=== PATIENT | male | born 1985 | race Caucasian/White ===

== ENCOUNTER 2018-04-02 13:09 | Inpatient (IN) | payer OTHER, SELFPAY ==
[2018-04-02] VITALS (16 sets, daily range): BP systolic 101–145; BP diastolic 67–92; PULSE 54–175; RESP 15–22; TEMP 36.6–36.8; O2SAT 98–100; BMI 32.3; BMI 32.8
--- NOTE | 2018-04-02 13:31 | NURSING ---
NO OLD EKGS
--- NOTE | 2018-04-02 14:23 | ED.VISSUMM ---
- ER Visit Summary Date of Service: 04/02/18 Chief Complaint: Fast heart rate History of Present Illness: The patient is a 32 M history of A. fib at 24 years old. Currently on no medications. States that for the last 2-3 days and accelerated heart rate. Denies any syncope. Denies any chest pain. No prior history of DVT or PE. No travel or surgery. No mobilization. No leg pain or swelling. No hemoptysis. Physical Examination: Well-appearing male vital signs stable except his heart rate goes between 08/26/1960. He is in active A. fib while in the room. His initial blood pressure is . Pulse ox 98% on room air no hypoxia. H EENT exam unremarkable. Neck nontender. No thyromegaly. Lungs clear to auscultation bilaterally. Heart irregularly irregular rate about 146. No murmur. Abdomen soft nontender. No peritoneal signs. Moving all 4 extremities. Neurovascularly intact. Calves nontender, no edema nor cords. Neurologically is awake alert with no focal motor deficits. Test Results: Acute A. fib RVR rate of 169 on his initial EKGs. No signs of ischemia. BC normal. BMP normal. Troponin normal. TSH normal. Chest x-ray no acute abnormality. Normal cardiac silhouette and mediastinum. Read both by myself and the radiologist. Emergency Department Course and Treatment: Will undergo a cardiac workup. Receive IV Cardizem. Patient is doing very well on repeat exam at 1555. Currently his heart rates in the 80s. He remains in A. fib. His pressures are currently 90/50. I discussed with both he and his fidona?e about being admitted they are comfortable with the plan. Treatment Plan: Speak to the hospitalist about admission Disposition: Admission Impression: Recurrent A. fib RVR This note was generated with [employer] software. It may contain incorrect words, spelling, and punctuation that were not noted in review of the chart prior to signing ED Disposition - Plan for ED Patient: Chief Complaint: Palpitations
[2018-04-02] MEDS: dilTIAZem 25 MG/5 ML Vial IV BOLUS (14:29)
[2018-04-02 14:31] LABS: Absolute Lymphocyte Count 3.25 X10^3/ul (0.83-4.51); Absolute Neutrophil Count 5.7 X10^3/uL (2.0-7.7); Basophil# 0.05 X10^3/uL; Basophil% 0.5 % (0-1); Eosinophil# 0.36 X10^3/uL; Eosinophils% 3.5 % (0-5); Hematocrit 49.9 % (40-54); Hemoglobin 16.9 g/dl (13.0-16.5); Lymphocyte # 3.25 X10^3/ul (4.0); Lymphocyte % 31.4 % (19-41); Mean Corp Hgb Conc 33.9 g/gl (32-36); Mean Corpuscular Hgb 29.6 pg (27.0-32.0); Mean Corpuscular Volume 87.5 fL (80-94); Monocyte# 1.01 X10^3/uL; Monocyte% 9.8 % (0-10); Neutrophil # 5.67 X10^3/uL (2.7-7.7); Neutrophil % 54.7 % (47-70); Platelet Count 236 K/mm3 (150-450); RBC Distribution Width CV 13.3 % (11.6-14.6); RBC Distribution Width SD 41.7 fl (35.1-43.9); White Blood Count 10.4 K/mm3 (4.4-11.0)
[2018-04-02 14:33] LABS: POSITIVE COUNT NO; POSITIVE DIFFERENTIAL NO; POSITIVE MORPHOLOGY NO
[2018-04-02 14:56] LABS: Anion Gap 8 (5-15); BUN 14 mg/dL (7-18); BUN/Creat Ratio 12.1 RATIO (10-20); Calcium,Total 9.4 mg/dL (8.5-10.1); Chloride 107 mmol/L (98-107); Creatinine, Serum 1.16 mg/dL (0.70-1.30); EST Glomerular Filtration Rate 77 mL/min (>60); Est Glom Filt Rate - Afr Amer 93 mL/min (>60); Estimated Creatinine Clearance 102.36 ml/min; Glucose 90 mg/dL (74-106); Potassium 3.9 mmol/L (3.5-5.1); Sodium Level 142 mmol/L (136-145); Thyroid Stim Hormone (TSH) 2.45 uIU/mL (0.358-3.74)
--- NOTE | 2018-04-02 16:01 | PCM.HP.STD ---
Problem List (1) Paroxysmal atrial fibrillation with RVR Status: Acute (2) Paroxysmal A-fib Status: Chronic History of Present Illness Date of Admission: 04/02/18 Chief Complaint: Palpitations The patient is a 32 year old M with past medical history significant for anxiety disorder, history of previous transient atrial fibrillation who presents with palpitations. Patient symptoms started 2 days prior to his admission. In addition to his palpitations patient felt lightheaded. Patient denied any chest pain no shortness of breath. He had a similar episode when he was 25 years of age and this was apparently attributed to heavy use of caffeine. Patient on further questioning admitted to drinking 3 cups of coffee. He denies any alcohol use. Patient was first seen at [facility] where EKG demonstrated A. fib with RVR he was subsequently sent to the emergency department where he was still found to be in A. fib with RVR started on Cardizem drip and admitted to a monitored bed for further management Past Medical History Past Medical History (Chronic Problems): Chronic Problems Paroxysmal A-fib (Chronic) Allergies sulfamethoxazole [From Septra] Allergy (Verified 04/02/18 14:12) Rash trimethoprim [From Septra] Allergy (Verified 04/02/18 14:12) Rash Home Medications: Ambulatory Orders Medication Instructions Recorded Fluticasone 0.05% [Flonase Nasal 1 spray NASAL DAILY 04/02/18 [place]] Propranolol HCl 20 mg PO PRN PRN 04/02/18 Psychiatric History: Anxiety Smoking Status: Former smoker Tobacco Use: Vapor Review of Systems Constitutional: Denies: Anorexia, Chills, Fever, Night Sweats, Weight Change HEENT: Denies: Head Aches, Sinus Congestion, Sinus Drainage Cardiovascular: Reports: Light Headedness, Palpitations. Denies: Chest Pain, Orthopnea, Paroxysmal Noc. Dyspnea Respiratory: Denies: Cough, Shortness of breath at rest, Shortness of breath upon exertion, Sputum production Gastrointestinal: Denies: Abdominal Pain, Hematemesis, Hematochezia, Nausea, Melena, Vomiting Genitourinary: Denies: Dysuria, Frequency, Hematuria, Urgency Musculoskeletal: Denies: Joint Pain, Joint Tenderness Skin: Denies: Rash Neurological: Denies: Focal weakness, Numbness, Tingling Psychiatric: Denies: Homicidal Ideations, Suicidal Ideations Hematologic/ Lymphatic: Denies: Easy Bruising, Easy Bleeding VTE Information - Inpt Only VTE Present on Admission: No VTE Mechan Device Prophylaxis: Knee High CELIA Hose VTE Pharm Prophylaxis ordered?: No Reason prophylaxis not ordered:: Treatment Not Indicated Patient Problems: Active and Suspected Problems Paroxysmal atrial fibrillation with RVR (Acute) - Physical Exam General: Alert, Oriented x3, Cooperative, No apparent distress HEENT: PERRLA Neck: Supple, No JVD Lungs: Clear to auscultation, No wheeze Cardiovascular: Normal S1, Normal S2, No murmurs, Irregular Rate, Tachycardic Abdomen: Bowel Sounds Present, Soft, Non Tender Extremities: No clubbing, No cyanosis, No edema Skin: No rashes Musculoskeletal: - - Full range of motion in all major muscle groups. Neurological: Neuro grossly intact Psych/Mental Status: Normal Affect Vital Signs Temp Pulse Resp BP Pulse Ox 98.1 F 85 19 H 101/67 99 04/02/18 13:11 04/02/18 15:10 04/02/18 15:10 04/02/18 15:10 04/02/18 15:10 Oxygen Delivery Method Room Air Weight: 111.13 kg Body Mass Index (BMI) 32.3 Laboratory Tests Past 24 Hrs 04/02/18 04/02/18 14:26 14:26 WBC 10.4 RBC 5.70 Hgb 16.9 H Hct 49.9 MCV 87.5 MCH 29.6 MCHC 33.9 RDW 13.3 RDW Differential 41.7 Plt Count 236 MPV 10.0 Immature Gran % (Auto) 0.100 Neut % (Auto) 54.7 Lymph % (Auto) 31.4 [place] % (Auto) 9.8 Eos % (Auto) 3.5 Baso % (Auto) 0.5 Absolute Neuts (auto) 5.7 Absolute Lymphs (auto) 3.25 Total Counted Not Reportable Sodium 142 Potassium 3.9 Chloride 107 Carbon Dioxide 27.0 Anion Gap 8 BUN 14 Creatinine 1.16 Estim Creat Clear Calc 102.36 Est GFR (MDRD) Af Amer 93 Est GFR (MDRD) Non-Af 77 BUN/Creatinine Ratio 12.1 Glucose 90 Calcium 9.4 Troponin I < 0.015 TSH 2.45 Assessment/Plan All Active Problems Paroxysmal atrial fibrillation with RVR (Acute) Patient is a 32-year-old gentleman presenting with palpitations found to be in A. fib with RVR 1. Atrial fibrillation with RVR: Patient has been admitted to monitored bed started on Cardizem drip titrated to keep rate less than 100. As part of patient management ordered serial cardiac enzymes 2D echo. Initial diagnostic workup in the ER came back unremarkable. Patient was also started on systemic anticoagulation. He was informed if he does not convert spontaneously he may need to be brought back after 3 weeks of systemic anticoagulation for possible cardioversion. Onset of his symptoms more than 48 hours prior to his presentation. Consultation was as also placed cardiology 2. Anxiety disorder patient is on propranolol as needed 3. Tobacco dependence: (Patient apparently vapes) counseled on cessation, offered nicotine patch for tobacco cravings 4. DVT prophylaxis patient was placed on systemic anticoagulation as part of his management of his A. fib. Code Visit OBSV E&M: 11286 Initial observation care L3
--- NOTE | 2018-04-02 16:01 | NURSING ---
DR GIO BOX
--- NOTE | 2018-04-02 17:48 | PCM.CONS.C ---
Problem List (1) Atrial fibrillation and flutter Status: Acute Reason for Consult Date of Consultation: 04/02/18 History of Present Illness: The patient is a 32 year old white male with a past medical history of paroxysmal atrial fibrillation-many years ago-who presents for evaluation of recurrent atrial fibrillation/flutter with rapid ventricular response. He notes that recently he has not felt best. He has noted palpitations. He states this is been somewhat more prominent than his usual. He believes his heart rhythm may have changed approximately 2 days ago. He states he was continuing his daily activities. However today at work he was told by his office staff that he did not look well. Subsequently presented to the [facility] outpatient setting for evaluation. There he was noted to have an ECG performed which demonstrated the appearance of an underlying atrial fibrillation with rapid ventricular response. He was subsequently referred to the [facility] emergency department for further evaluation and care. He states he has noted palpitations. He has not necessarily noted ongoing chest discomfort or difficulty breathing. He has not had near syncope or syncope. He states he has otherwise been relatively healthy. He notes he had a similar episode several years ago for which she was evaluated in [place], [place]. He notes he spontaneously converted to normal sinus rhythm, was released home, and had no further cardiac evaluation or care that he recalls at that time. He states that he does drink approximately 3 cups of caffeinated coffee per day. 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 He denies any illicit drug use. He states he does use an e-cigarette. He notes he does have an underlying anxiety disorder. He does occasionally use beta-palma in the form of Inderal/propranolol. He states he uses this potentially once or twice a month. He notes he is due to be this coming April,. He states there is anxiety revolving around that event. He has had cardiac enzymes performed which thus far have been negative. His ECG at [facility] demonstrated the appearance of an atrial fibrillation/flutter with a rapid ventricular response. He was treated with IV diltiazem. His heart rate has slowed. He states he can tell the difference. [] Past Medical History Allergies/Adverse Reactions: Allergies sulfamethoxazole [From Septra] Allergy (Verified 04/02/18 14:12) Rash trimethoprim [From Septra] Allergy (Verified 04/02/18 14:12) Rash Home Medications: Ambulatory Orders Medication Instructions Recorded Fluticasone 0.05% [Flonase Nasal 1 spray NASAL DAILY 04/02/18 [place]] Propranolol HCl 20 mg PO PRN PRN 04/02/18 Past Medical History (Chronic Problems): Chronic Problems Paroxysmal A-fib (Chronic) Psychiatric History: Anxiety Smoking Status: Former smoker Tobacco Use: Vapor Alcohol: Sober Drugs: None Review of Systems - Review of Systems General: Denies: Fever, Night Sweats, Fatigue Cardiovascular: Reports: Palpitations. Denies: Chest Discomfort, Shortness of Breath, Orthopnea, PND, Peripheral Edema, Lightheadedness, Dizziness, Near Syncope, Syncope Respiratory: Denies: Cough, Sputum Production, Hemoptysis Gastrointestinal: Denies: Hematemesis, Hematochezia, Melena Genitourinary: Denies: Dysuria, Hematuria Skin: Denies: Rash Subjectve: This is a 32-year-old white male who appears to be resting comfortably at the moment in no acute distress. Objective: Vital Signs Temp Pulse Resp BP Pulse Ox 97.8 F 87 18 115/77 98 04/02/18 16:40 04/02/18 16:40 04/02/18 16:40 04/02/18 16:41 04/02/18 16:40 Oxygen Delivery Method Room Air Weight: 248 lb 7.375 oz Body Mass Index (BMI) 32.8 General: Healthy Appearing, Awake, Alert, Oriented x 3, Cooperative, No Acute Distress HEENT: Atraumatic, Normocephalic, PERRL, EOMI, Sclera Non Icteric Oral: Moist Mucosa Neck: Supple, Good ROM, No JVD Lungs: Clear to auscultation Cardiovascular: Irregular Rhythm, Normal S1, Normal S2 Vascular: No Carotid Bruits Abdomen: Bowel Sounds Present, Soft, Non Tender Extremities: No Cyanosis, No Clubbing, No edema Neurological: No Focal Motor or Sensory Deficit Psych/Mental Status: Appropriate, Normal Affect Rhythm: As noted above EKG: As noted above ECHO: Pending CXR: Preliminary evaluation: No acute cardiopulmonary disease process appreciated: Please see official report Assessment/Plan 1. Atrial fibrillation/flutter with rapid ventricular response At the present time the patient does have a history of paroxysmal atrial fibrillation with spontaneous conversion to sinus rhythm. His ECG now suggests an underlying atrial fibrillation/flutter. The etiology is uncertain at this time. He notes in the past his event was attributed to caffeine intake. He states he has decreased his caffeine intake although it is not 0. He still does use E cigarettes. He denies any other type of use of decongestants, alcohol, illicit drugs, etc. He is not known to have other medical conditions contributing to this. Does not believe he had any significant cardiovascular evaluation with his previous event. He is being monitored. His initial cardiac enzyme is negative. His initial ECG does not appear to demonstrate any additional acute changes. Additional diagnostic studies such as transthoracic echocardiogram are pending. He will continue evaluation for other cardiovascular related etiologies it may be contributing to or participating in this event. This will include the possibility of CAD, noting he has a family history of CAD requiring revascularization therapy, etc., with a form of an exercise tolerance test/imaging study to evaluate his coronary physiology. Depending upon his clinical course and findings he may or may not need additional diagnostic studies. He is being treated with rate control therapy. He will also be treated with anticoagulant therapy. The patient was also counseled on the need to decrease and/or discontinue his caffeine intake as well as his nicotine intake. He states he is refraining from any alcohol intake as well as illicit drug use. Over time, if he does not have spontaneous conversion to sinus rhythm, then an attempt can be made to regain sinus rhythm. This may include rate control therapy with anticoagulant therapy and eventual synchronized biphasic DC cardioversion. If the patient's situation changes and this needs to be attempted sooner than later then it may need to be proceeded by a transesophageal echocardiogram to evaluate for any obvious previously formed intracardiac thrombus, etc. Comment: The above was discussed and reviewed with the patient. This note was generated with [employer] dictation software. It may contain incorrect words, spelling, and punctuation that were not noted in checking the note before signing.
[2018-04-02] MEDS: dilTIAZem CD 120 MG Capsule PO (18:26)
[2018-04-02] MEDS: Enoxaparin 120 MG/0.8 ML Syringe 110 MG SC (18:26)
[2018-04-02] MEDS: dilTIAZem 25 MG/5 ML Vial 10 MG IV BOLUS (21:14)
[2018-04-02] MEDS: 0.9% NaCl Peripheral Flush Adult/Peds IV (21:14)
[2018-04-02 21:46] LABS: Magnesium 1.9 mg/dL (1.6-2.6)
[2018-04-02 21:48] LABS: Amphetamine Urine VISTA NEGATIVE (<1000 ng/mL); Barbiturate Urine VISTA NEGATIVE (< 200 ng/mL); Benzodiazepine Urine VISTA NEGATIVE (< 200 ng/mL); Cocaine Urine VISTA NEGATIVE (< 300 ng/mL); Ecstacy Urine VISTA NEGATIVE (< 500 ng/mL); Methadone Urine VISTA NEGATIVE (< 300 ng/mL); PCP Urine VISTA NEGATIVE (< 25 ng/mL); THC Urine VISTA NEGATIVE (< 50 ng/mL); Vista UDS pH Range 6
[2018-04-02] MEDS: Zolpidem Tartrate 5 MG Tablet PO (22:39)
[2018-04-03] VITALS (26 sets, daily range): BP systolic 91–121; BP diastolic 57–89; PULSE 61–98; RESP 10–19; TEMP 36.5–36.7; O2SAT 94–100
[2018-04-03 05:54] LABS: Absolute Lymphocyte Count 3.25 X10^3/ul (0.83-4.51); Basophil# 0.03 X10^3/uL; Basophil% 0.4 % (0-1); Eosinophil# 0.33 X10^3/uL; Eosinophils% 3.9 % (0-5); Hematocrit 49.3 % (40-54); Hemoglobin 16.7 g/dl (13.0-16.5); Lymphocyte # 3.25 X10^3/ul (4.0); Lymphocyte % 38.8 % (19-41); Mean Corp Hgb Conc 33.9 g/gl (32-36); Mean Corpuscular Hgb 29.6 pg (27.0-32.0); Mean Corpuscular Volume 87.3 fL (80-94); Mean Platelet Vol. 10.1 fl (6.2-12.0); Monocyte# 0.73 X10^3/uL; Monocyte% 8.7 % (0-10); Neutrophil # 4.02 X10^3/uL (2.7-7.7); Neutrophil % 48.1 % (47-70); Platelet Count 215 K/mm3 (150-450); RBC Distribution Width CV 13.4 % (11.6-14.6); Red Blood Count 5.65 M/mm3 (4.6-6.2); White Blood Count 8.4 K/mm3 (4.4-11.0)
[2018-04-03 05:55] LABS: POSITIVE COUNT NO; POSITIVE DIFFERENTIAL NO; POSITIVE MORPHOLOGY NO
[2018-04-03 06:00] LABS: Partial Thromboplast Time 33.1 Seconds (24.1-36.2)
[2018-04-03 06:13] LABS: AST(SGOT) 19 U/L (15-37); Alanine Aminotransfer ALT/SGPT 38 U/L (16-61); Albumin, Serum 3.7 g/dL (3.2-5.0); Alkaline Phosphatase 64 U/L (45-117); Anion Gap 11 (5-15); BUN 12 mg/dL (7-18); BUN/Creat Ratio 13.7 RATIO (10-20); Bilirubin, Direct 0.21 mg/dL (0.00-0.30); Calcium,Total 8.6 mg/dL (8.5-10.1); Chloride 107 mmol/L (98-107); Cholesterol 191 mg/dL (200); Creatinine, Serum 0.88 mg/dL (0.70-1.30); EST Glomerular Filtration Rate 106 mL/min (>60); Est Glom Filt Rate - Afr Amer 128 mL/min (>60); Estimated Creatinine Clearance 134.93 ml/min; Globulin 3.1 g/dL (2.2-4.2); Glucose 89 mg/dL (74-106); High Density Lipoprotein 40 mg/dL; Potassium 3.8 mmol/L (3.5-5.1); Protein, Total 6.8 g/dL (6.4-8.2); Sodium Level 141 mmol/L (136-145); Triglycerides 145 mg/dL; Very Low Density Lipoprotein 29 mg/dL (5-40)
--- NOTE | 2018-04-03 08:27 | PCM.PN.CARD ---
Subjectve: The patient is awake, alert, and oriented. He denies any ongoing chest discomfort or difficulty breathing. He was noted yesterday evening to have increase in his ventricular rate and subsequently required altering his oral calcium channel antagonist to an IV calcium channel antagonist. He is currently undergoing further evaluation with noninvasive studies. Objective: Vital Signs Temp Pulse Resp BP Pulse Ox 97.7 F L 75 16 112/80 100 04/03/18 03:00 04/03/18 07:00 04/03/18 07:00 04/03/18 07:00 04/03/18 07:00 Oxygen Delivery Method Room Air Weight: 248 lb 7.375 oz Body Mass Index (BMI) 32.8 Intake and Output for Last 24 Hours 04/01/18 04/02/18 04/03/18 23:59 23:59 23:59 Intake Total 240 / 240 1084.4 / 1084.4 Balance 240 / 240 1084.4 / 1084.4 General: Healthy Appearing, Awake, Alert, Oriented x 3, Cooperative, No Acute Distress HEENT: Atraumatic, Normocephalic, PERRL, EOMI Oral: Moist Mucosa Neck: Supple, Good ROM, No JVD Lungs: Clear to auscultation Cardiovascular: Irregular Rhythm, Normal S1, Normal S2 Vascular: No Carotid Bruits Abdomen: Bowel Sounds Present, Soft, Non Tender Extremities: No Cyanosis, No Clubbing, No edema Neurological: No Focal Motor or Sensory Deficit Psych/Mental Status: Appropriate, Normal Affect 04/02/18 17:13: Troponin I < 0.015 04/02/18 20:57: Magnesium 1.9, Troponin I < 0.015 04/03/18 05:22: Sodium 141, Potassium 3.8, Chloride 107, Carbon Dioxide 23.0, Anion Gap 11, BUN 12, Creatinine 0.88, Est GFR (MDRD) Af Amer 128, Est GFR (MDRD) Non-Af 106, BUN/Creatinine Ratio 13.7, Glucose 89, Calcium 8.6, Total Bilirubin 1.00, Direct Bilirubin 0.21, Triglycerides 145, Cholesterol 191, LDL Cholesterol 122, VLDL Cholesterol 29, HDL Cholesterol 40 04/03/18 05:22: WBC 8.4, RBC 5.65, Hgb 16.7 H, Hct 49.3, MCV 87.3, MCH 29.6, MCHC 33.9, RDW 13.4, RDW Differential 42.0, Plt Count 215, MPV 10.1, Immature Gran % (Auto) 0.100, Neut % (Auto) 48.1, Lymph % (Auto) 38.8, [place] % (Auto) 8.7, Eos % (Auto) 3.9, Baso % (Auto) 0.4, Absolute Neuts (auto) 4.0, Total Counted Not Reportable 04/03/18 05:22: PT 13.0, INR 1.0, APTT 33.1 Rhythm: Atrial fibrillation ECHO: Pending Stress Test: Pending Medical Necessity - Tobacco Use Smoking Status: Former smoker Tobacco Use: Vapor Assessment/Plan 1. Atrial fibrillation/flutter with rapid ventricular response At the present time the patient does have a history of paroxysmal atrial fibrillation with spontaneous conversion to sinus rhythm. He is being monitored. His cardiac enzymes have remained negative. His ECG demonstrated no acute ECG changes other than his atrial dysrhythmia. He is undergoing further evaluation with transthoracic echocardiogram and a pharmacologic stress nuclear imaging study to evaluate for any obvious evidence of myocardial ischemia that would be pertinent to know with respect to his ongoing cardiovascular evaluation and care-especially if he does require antiarrhythmic therapy. Depending upon his clinical course and findings he may or may not need additional diagnostic studies. He is being treated with rate control therapy. He will also be treated with anticoagulant therapy. He may need to be considered for further evaluation and care with JEFFREY guided synchronized biphasic DC cardioversion. Comment: The above was discussed and reviewed with the patient. This note was generated with [employer] dictation software. It may contain incorrect words, spelling, and punctuation that were not noted in checking the note before signing.
--- NOTE | 2018-04-03 09:17 | STRESSREP ---
Stress Test Report Pharmacologic myocardial perfusion stress test. 32-year-old man with a history of atrial fibrillation. Stress protocol: Resting EKG demonstrates atrial for ablation with a rate of 77 bpm normal intervals and noted resting blood pressure is 117/84 mmHg. 0.4 mg of regadenoson was infused per usual protocol followed by rapid intravenous saline flush injection continuous EKG monitoring was performed. Patient maintained atrial fibrillation throughout the recording. The maximum heart rate was 114 bpm the maximum workload was 1 metabolic equivalent. The blood pressure remained at 117/84 mmHg. Myocardial perfusion protocol. 14.8 mCi of technetium 99m sestamibi was injected at rest. 0.4 mg of regadenoson was infused per usual protocol. At peak infusion 44.7 mCi of technetium 99m sestamibi was injected stress images were obtained stress and rest images were reconstructed and compared in the short axis vertical long and horizontal long axis. Gated images were also obtained pre- Perfusion SPECT analysis: Review of the stress images demonstrate normal uptake of tracer noted in all areas of the myocardium. The resting images also demonstrate normal uptake of tracer noted in all areas of the myocardium. No areas of reversibility are noted to suggest ischemia. Gated SPECT analysis: The gated ejection fraction is 51%. Conclusion: Normal pharmacologic myocardial perfusion stress test. Preserved ejection fraction. Atrial fibrillation noted.
[2018-04-03] MEDS: 0.9% NaCl Peripheral Flush Adult/Peds IV (10:32)
[2018-04-03] MEDS: Propranolol 10 MG Tablet 20 MG PO (10:32)
[2018-04-03] MEDS: HEPARIN/D5w 25,000 UNITS 25,000 UNITS/250 ML IV.SOLN. 15 UNITS IV (11:00)
[2018-04-03] MEDS: Heparin Injection (Vial) 5,000 UNIT/ML VIAL IV (11:03)
[2018-04-03] MEDS: 0.9% Normal Saline 1,000 ML 15 ML IV (11:04)
[2018-04-03] MEDS: Fluticasone 0.05% 1 SPRAY NASAL.SRY NASAL (11:09)
[2018-04-03 11:12] LABS: Partial Thromboplast Time 30.2 Seconds (24.1-36.2)
--- NOTE | 2018-04-03 11:16 | PCM.PROGNOTE ---
<Royce Olson - Last Filed: 04/03/18 11:24> Patient Problems: Active and Suspected Problems Paroxysmal atrial fibrillation with RVR (Acute) Atrial fibrillation and flutter (Acute) Subjective: Pt resting comfortably in bed. Still in Afib but rate is controlled. Patient had negative stress today. No CP. He does have occasional palpitations but these are much less severe than at admission. No SOB. He is very anxious. 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 We discussed the risks of bleeding. He does still vape but claims the nicotine amount that he is using amounts to only 1-2 cigarettes per week. He has cut back on caffeine. - Physical Exam General: Alert, Oriented x3, Cooperative HEENT: Atraumatic, PERRLA, EOMI, Normocephalic Neck: Supple, No JVD, Negative Carotid Bruits Lungs: Clear to auscultation, Normal air movement Cardiovascular: No murmurs, Irregular Rate Abdomen: Bowel Sounds Present, Soft, Non Tender Extremities: No edema, Capillary Refill Less than 3 Seconds Skin: No rashes, No breakdown Musculoskeletal: No Tenderness to Palpation of Joints or Extremities Neurological: Cranial nerves II-XII grossly intact Psych/Mental Status: Normal Affect, Appropriate, Alert and oriented to time, place, person, mood and affect Vital Signs Temp Pulse Resp BP Pulse Ox 98.1 F 80 11 L 116/74 98 04/03/18 09:00 04/03/18 10:00 04/03/18 10:00 04/03/18 10:00 04/03/18 10:00 Oxygen Delivery Method Room Air Weight: 248 lb 7.375 oz Body Mass Index (BMI) 32.8 Intake and Output for Last 24 Hours 04/01/18 04/02/18 04/03/18 23:59 23:59 23:59 Intake Total 240 / 240 1084.4 / 1084.4 Balance 240 / 240 1084.4 / 1084.4 Laboratory Tests Past 24 Hrs 04/02/18 04/02/18 04/02/18 17:13 20:57 21:20 WBC RBC Hgb Hct MCV MCH MCHC RDW RDW Differential Plt Count MPV Immature Gran % (Auto) Neut % (Auto) Lymph % (Auto) [place] % (Auto) Eos % (Auto) Baso % (Auto) Absolute Neuts (auto) Absolute Lymphs (auto) Total Counted PT INR APTT Sodium Potassium Chloride Carbon Dioxide Anion Gap BUN Creatinine Estim Creat Clear Calc Est GFR (MDRD) Af Amer Est GFR (MDRD) Non-Af BUN/Creatinine Ratio Glucose Calcium Magnesium 1.9 Total Bilirubin Direct Bilirubin AST ALT Alkaline Phosphatase Troponin I < 0.015 < 0.015 Total Protein Albumin Globulin Triglycerides Cholesterol LDL Cholesterol VLDL Cholesterol HDL Cholesterol Urine Opiates Screen NEGATIVE Urine Methadone Screen NEGATIVE Ur Barbiturates Screen NEGATIVE Ur Phencyclidine Scrn NEGATIVE Ur Amphetamines Screen NEGATIVE U Methamphetamin-MDMA NEGATIVE U Benzodiazepines Scrn NEGATIVE Urine Cocaine Screen NEGATIVE U Cannabinoids Screen NEGATIVE Ur Drug Screen Comment 04/03/18 04/03/18 04/03/18 05:22 05:22 05:22 WBC 8.4 RBC 5.65 Hgb 16.7 H Hct 49.3 MCV 87.3 MCH 29.6 MCHC 33.9 RDW 13.4 RDW Differential 42.0 Plt Count 215 MPV 10.1 Immature Gran % (Auto) 0.100 Neut % (Auto) 48.1 Lymph % (Auto) 38.8 [place] % (Auto) 8.7 Eos % (Auto) 3.9 Baso % (Auto) 0.4 Absolute Neuts (auto) 4.0 Absolute Lymphs (auto) 3.25 Total Counted Not Reportable PT 13.0 INR 1.0 APTT 33.1 Sodium 141 Potassium 3.8 Chloride 107 Carbon Dioxide 23.0 Anion Gap 11 BUN 12 Creatinine 0.88 Estim Creat Clear Calc 134.93 Est GFR (MDRD) Af Amer 128 Est GFR (MDRD) Non-Af 106 BUN/Creatinine Ratio 13.7 Glucose 89 Calcium 8.6 Magnesium Total Bilirubin 1.00 Direct Bilirubin 0.21 AST 19 ALT 38 Alkaline Phosphatase 64 Troponin I Total Protein 6.8 Albumin 3.7 Globulin 3.1 Triglycerides 145 Cholesterol 191 LDL Cholesterol 122 VLDL Cholesterol 29 HDL Cholesterol 40 Urine Opiates Screen Urine Methadone Screen Ur Barbiturates Screen Ur Phencyclidine Scrn Ur Amphetamines Screen U Methamphetamin-MDMA U Benzodiazepines Scrn Urine Cocaine Screen U Cannabinoids Screen Ur Drug Screen Comment 04/03/18 10:46 WBC RBC Hgb Hct MCV MCH MCHC RDW RDW Differential Plt Count MPV Immature Gran % (Auto) Neut % (Auto) Lymph % (Auto) [place] % (Auto) Eos % (Auto) Baso % (Auto) Absolute Neuts (auto) Absolute Lymphs (auto) Total Counted PT INR APTT 30.2 Sodium Potassium Chloride Carbon Dioxide Anion Gap BUN Creatinine Estim Creat Clear Calc Est GFR (MDRD) Af Amer Est GFR (MDRD) Non-Af BUN/Creatinine Ratio Glucose Calcium Magnesium Total Bilirubin Direct Bilirubin AST ALT Alkaline Phosphatase Troponin I Total Protein Albumin Globulin Triglycerides Cholesterol LDL Cholesterol VLDL Cholesterol HDL Cholesterol Urine Opiates Screen Urine Methadone Screen Ur Barbiturates Screen Ur Phencyclidine Scrn Ur Amphetamines Screen U Methamphetamin-MDMA U Benzodiazepines Scrn Urine Cocaine Screen U Cannabinoids Screen Ur Drug Screen Comment Medical Necessity - Tobacco Use Smoking Status: Former smoker Tobacco Use: Vapor Assessment/Plan All Active Problems Paroxysmal atrial fibrillation with RVR (Acute) Atrial fibrillation and flutter (Acute) 1. P-Afib with RVR - rate controlled - negative stress test. JEFFREY Cardioversion today. Heparin drip. Xarelto at dc - sent. Plan to transition to PO cardizem as well. TSH normal. Trop neg x3. Tox screen neg. 2. Nicotine abuse - encouraged cessation. Is using a small amount of nicotine reportedly. DVT ppx: heparin DC planning: Monitor overnight post cardioversion This patient was seen by Royce Olson PA-C under the supervision of Dr. Orellana. <David Orellana - Last Filed: 04/03/18 12:42> - Physical Exam Vital Signs Temp Pulse Resp BP Pulse Ox 98.1 F 78 14 105/82 H 98 04/03/18 09:00 04/03/18 11:00 04/03/18 11:00 04/03/18 11:00 04/03/18 11:00 Oxygen Delivery Method Room Air Weight: 112.7 kg Body Mass Index (BMI) 32.8 Intake and Output for Last 24 Hours 04/01/18 04/02/18 04/03/18 23:59 23:59 23:59 Intake Total 240 / 240 1084.4 / 1084.4 Balance 240 / 240 1084.4 / 1084.4 Laboratory Tests Past 24 Hrs 04/02/18 04/02/18 04/02/18 17:13 20:57 21:20 WBC RBC Hgb Hct MCV MCH MCHC RDW RDW Differential Plt Count MPV Immature Gran % (Auto) Neut % (Auto) Lymph % (Auto) [place] % (Auto) Eos % (Auto) Baso % (Auto) Absolute Neuts (auto) Absolute Lymphs (auto) Total Counted PT INR APTT Sodium Potassium Chloride Carbon Dioxide Anion Gap BUN Creatinine Estim Creat Clear Calc Est GFR (MDRD) Af Amer Est GFR (MDRD) Non-Af BUN/Creatinine Ratio Glucose Calcium Magnesium 1.9 Total Bilirubin Direct Bilirubin AST ALT Alkaline Phosphatase Troponin I < 0.015 < 0.015 Total Protein Albumin Globulin Triglycerides Cholesterol LDL Cholesterol VLDL Cholesterol HDL Cholesterol Urine Opiates Screen NEGATIVE Urine Methadone Screen NEGATIVE Ur Barbiturates Screen NEGATIVE Ur Phencyclidine Scrn NEGATIVE Ur Amphetamines Screen NEGATIVE U Methamphetamin-MDMA NEGATIVE U Benzodiazepines Scrn NEGATIVE Urine Cocaine Screen NEGATIVE U Cannabinoids Screen NEGATIVE Ur Drug Screen Comment 04/03/18 04/03/18 04/03/18 05:22 05:22 05:22 WBC 8.4 RBC 5.65 Hgb 16.7 H Hct 49.3 MCV 87.3 MCH 29.6 MCHC 33.9 RDW 13.4 RDW Differential 42.0 Plt Count 215 MPV 10.1 Immature Gran % (Auto) 0.100 Neut % (Auto) 48.1 Lymph % (Auto) 38.8 [place] % (Auto) 8.7 Eos % (Auto) 3.9 Baso % (Auto) 0.4 Absolute Neuts (auto) 4.0 Absolute Lymphs (auto) 3.25 Total Counted Not Reportable PT 13.0 INR 1.0 APTT 33.1 Sodium 141 Potassium 3.8 Chloride 107 Carbon Dioxide 23.0 Anion Gap 11 BUN 12 Creatinine 0.88 Estim Creat Clear Calc 134.93 Est GFR (MDRD) Af Amer 128 Est GFR (MDRD) Non-Af 106 BUN/Creatinine Ratio 13.7 Glucose 89 Calcium 8.6 Magnesium Total Bilirubin 1.00 Direct Bilirubin 0.21 AST 19 ALT 38 Alkaline Phosphatase 64 Troponin I Total Protein 6.8 Albumin 3.7 Globulin 3.1 Triglycerides 145 Cholesterol 191 LDL Cholesterol 122 VLDL Cholesterol 29 HDL Cholesterol 40 Urine Opiates Screen Urine Methadone Screen Ur Barbiturates Screen Ur Phencyclidine Scrn Ur Amphetamines Screen U Methamphetamin-MDMA U Benzodiazepines Scrn Urine Cocaine Screen U Cannabinoids Screen Ur Drug Screen Comment 04/03/18 10:46 WBC RBC Hgb Hct MCV MCH MCHC RDW RDW Differential Plt Count MPV Immature Gran % (Auto) Neut % (Auto) Lymph % (Auto) [place] % (Auto) Eos % (Auto) Baso % (Auto) Absolute Neuts (auto) Absolute Lymphs (auto) Total Counted PT INR APTT 30.2 Sodium Potassium Chloride Carbon Dioxide Anion Gap BUN Creatinine Estim Creat Clear Calc Est GFR (MDRD) Af Amer Est GFR (MDRD) Non-Af BUN/Creatinine Ratio Glucose Calcium Magnesium Total Bilirubin Direct Bilirubin AST ALT Alkaline Phosphatase Troponin I Total Protein Albumin Globulin Triglycerides Cholesterol LDL Cholesterol VLDL Cholesterol HDL Cholesterol Urine Opiates Screen Urine Methadone Screen Ur Barbiturates Screen Ur Phencyclidine Scrn Ur Amphetamines Screen U Methamphetamin-MDMA U Benzodiazepines Scrn Urine Cocaine Screen U Cannabinoids Screen Ur Drug Screen Comment Assessment/Plan This patient was seen in conjunction with Royce Olson PA-C. I have independently interviewed and examined the patient and reviewed pertinent historical, laboratory, and other data. Please refer to Royce Olson PA-C note for details of this patient's presentation, findings, and recommendations. I have reviewed Royce Olson PA-C note and concur with documented findings. In brief, patient is a 32-year-old gentleman with one previous history of transient A. fib presenting with palpitations found to be in A. fib with RVR admitted to monitored bed for subsequent management patient underwent a nuclear stress test on 04/03/2018 which was negative for stress-induced ischemia plan is for patient undergo cardioversion by cardiology Physical Examination: GENERAL: cooperative HEENT: Clear conjunctiva, NECK; supple, normal thyroid, CHEST: Clear to auscultation bilaterally, HEART: Irregular S1 S2, no audible murmurs ABDOMEN: soft, non-tender, normoactive bowel sounds, RECTAL: deferred PHOTOENGRAVING FINISHER: Awake; no lateralizing signs. SKIN: No Rash Assessment: 1. Atrial fibrillation with RVR 2. Anxiety disorder 3. Tobacco dependence: (Patient apparently vapes) counseled on cessation, offered nicotine patch for tobacco cravings 4. DVT prophylaxis patient was placed on systemic anticoagulation as part of his management of his A. fib. Recommendations: 1. I have discussed the results of my overview and impressions with the patient 2. Options for management were reviewed Code Visit Inpatient E&M: 18314 Subs Hosp L3
--- NOTE | 2018-04-03 12:30 | CASEMGMT ---
Addendum entered by Margot Graham 04/03/18 13:24: Per Teresita CRISTOBAL, pt will be sent home on Xarelto at discharge and med e-scribed to pharmacy. Call to [facility] and per tech, pt's co-pay will be $417. Pt will be notified once returned from testing and this RN CM notified Teresita CRISTOBAL also about co-pay at this time. Pt is still out of the dept for testing at this time. This RN CM will attempt later. Gopi JAMES CM Original Note: This RN CM to room to see pt and pt is out of the dept for JEFFREY/cardioversion at this time. This RN CM will attempt again later. Gopi JAMES CM
--- NOTE | 2018-04-03 13:22 | PCM.OP.BLANK ---
Operative Report Date of Procedure: 04/03/18 CONSCIOUS SEDATION REPORT DATE OF SERVICE: April 03, 2018 BRIEF HISTORY OF PRESENT ILLNESS: The patient is a 32-year-old male with a history that includes paroxysmal atrial fibrillation, who presented to the hospital on April 02 with recurrent atrial fibrillation with a rapid ventricular response. The patient underwent evaluation by cardiology and a subsequent transesophageal echocardiogram revealed ejection fraction of approximately 55% without evidence of thrombus. The patient denies a history of previous anesthetic complications. He does report a history of mild seasonal asthma, but denies a history of COPD or obstructive sleep apnea. He does have a prior alcohol and substance abuse history. PHYSICAL EXAMINATION: VITAL SIGNS: Reviewed and were acceptable. GENERAL: The patient is a male, in no apparent distress, speaking in full sentences. HEENT: Normocephalic, atraumatic. Mucous membranes are moist and pink. Good mouth opening noted. Trachea is midline. Good neck mobility. MPII CHEST: S1, S2 irregularly irregular. No murmurs, rubs or gallops were noted. LUNGS: Clear to auscultation bilaterally without appreciable wheezes, rales or rhonchi. ABDOMEN: Soft, nontender, nondistended. Positive bowel sounds. EXTREMITIES: There is no clubbing, cyanosis or edema. ASA Class: II DESCRIPTION OF PROCEDURE: After confirmation of informed consent, the patient's anesthesia plan was reviewed in detail. Propofol was chosen. Risks and benefits were reviewed and the patient agreed to proceed. At 1302, the patient was given 60 mg of propofol. The patient achieved an appropriate level of sedation and was given a 200 joule synchronized cardioversion by Dr. Bianchi at the bedside. This was successful in achieving normal sinus rhythm. The patient was monitored until 1312, at which time, he reached his baseline mental status and function. The patient tolerated the procedure well. COMPLICATIONS: None ESTIMATED BLOOD LOSS: None RECOMMENDATIONS: Okay to recover in usual fashion. Code Visit 9xxxx: Other Procedure See Report - [id number]
[2018-04-03] MEDS: dilTIAZem CD 120 MG Capsule PO (14:21)
[2018-04-03] MEDS: Rivaroxaban 20 MG Tablet PO (14:22)
--- NOTE | 2018-04-03 14:38 | CASEMGMT ---
Face to Face with patient for initial transition planning/care coordination assessment. JACOB CUEVAS introduced self and role at [facility], pt voices understanding and consents to assessment at this time. Pt is sitting up in bed in no distress at this time. Pt is A/Ox4 at this time and answers all questions appropriately at this time. Care providers, pharmacy, and demographics verified. See attached link. Pt voices no further concerns/needs at this time. Advised pt to ask for CM if any further questions/concerns/needs arise, voices understanding. Pt updated on Xarelto co-pay at this time and provided with Xarelto savings card at this time with instruction to pt/sig other. PLAN[place] JACOB CUEVAS
--- NOTE | 2018-04-03 15:37 | PCM.OP.BLANK ---
Problem List (1) Atrial fibrillation and flutter Status: Acute Operative Report Date of Procedure: 04/03/18 Procedure: Synchronized biphasic DC cardioversion Indications: Atrial fibrillation/flutter Consent: Per the patient Medications: Per Dr. Alistair Henning of pulmonology/critical care medicine with propofol 60 mg IV push total Procedure: Synchronized biphasic DC cardioversion: 200 J ?1: Result: Sinus rhythm Implications: No apparent complications This note was generated with [email or web address] software. It may contain incorrect words, spelling, and punctuation that were not noted in checking the note before signing.
--- NOTE | 2018-04-03 19:29 | PCM.DC ---
- Discharge Diagnoses Current Active Problems: Current Active and Chronic Problems Paroxysmal A-fib (Chronic) Paroxysmal atrial fibrillation with RVR (Acute) Atrial fibrillation and flutter (Acute) You will use the following diet at home:: Cardiac Your food should be the consistency of: Regular Your liquids should be the consistency of: Regular/Thin Discharge Activity: Return to Normal Activity May resume sexual activity in: No Restrictions Call your doctor if you observe: Shortness of breath, Dizziness, Fainting spells, Chest pain, Increased palpitations (irregular heartbeat) Allergies/Adverse Reactions: Allergies sulfamethoxazole [From ] Allergy (Verified 04/02/18 14:12) Rash trimethoprim [From ] Allergy (Verified 04/02/18 14:12) Rash Medications to take at Discharge Fluticasone 0.05% [Flonase Nasal [place]] 1 spray NASAL DAILY 04/02/18 Propranolol HCl 20 mg PO PRN PRN 04/02/18 Diltiazem CD [Cardizem CD] 120 mg PO DAILY #30 cap 04/03/18 Rivaroxaban [Xarelto] 20 mg PO DAILY #30 tab 04/03/18 The following prescriptions were given: Diltiazem CD [Cardizem CD] 120 mg PO DAILY #30 cap Rivaroxaban [Xarelto] 20 mg PO DAILY #30 tab Primary Care Physician: Karlo Flores PA [Primary Care Provider] - Please follow up with your Primary Care Physician in: in 3-5 days Test Results: Test results from this visit will be discussed in further detail at your follow-up appointment, if applicable. Please Follow Up With: -Attn: VERN[facility] Please Follow Up With: Florencio Godinez NP-C When: 2-4wks Proposed Discharge Date: 04/03/18 - Congratulations on your this Sunday. Live it up! Every day is a gift.
--- NOTE | 2018-04-03 19:41 | PCM.DC.SUM ---
Discharge Date and Diagnosis - Problem List Patient Problems: Active and Suspected Problems Paroxysmal atrial fibrillation with RVR (Acute) Atrial fibrillation and flutter (Acute) Date of Admission: 04/02/18 Date of Discharge: 04/03/18 - Primary Discharge Diagnosis Active and Suspected Problems Paroxysmal atrial fibrillation with RVR (Acute) Atrial fibrillation and flutter (Acute) - Secondary Discharge Diagnosis Chronic Problems Paroxysmal A-fib (Chronic) Hospital Course and Treatment Consults: Cardiology Operations: None Procedures: 2-D Echocardiogram - Interpretation Summary The study was technically difficult. Contrast injection was performed. Left ventricular systolic function is normal. The estimated ejection fraction is 55 %. Anterior leaflet diffuse mitral valve thickening. Trivial mitral valve insufficiency. Trivial tricuspid valve insufficiency. Unable to estimate RV systolic pressure/pulmonary artery pressure due to technically difficult study. Unable to assess diastolic dysfunction., Cardioversion - Procedure: Synchronized biphasic DC cardioversion: 200 J ?1: Result: Sinus rhythm Implications: No apparent complications, Nuclear stress test - Conclusion: Normal pharmacologic myocardial perfusion stress test. Preserved ejection fraction. Atrial fibrillation noted. Summary of Care Provided: HPI: The patient is a 32 year old M with past medical history significant for anxiety disorder, history of previous transient atrial fibrillation who presents with palpitations. Patient symptoms started 2 days prior to his admission. In addition to his palpitations patient felt lightheaded. Patient denied any chest pain no shortness of breath. He had a similar episode when he was 25 years of age and this was apparently attributed to heavy use of caffeine. Patient on further questioning admitted to drinking 3 cups of coffee. He denies any alcohol use. Patient was first seen at [facility] where EKG demonstrated A. fib with RVR he was subsequently sent to the emergency department where he was still found to be in A. fib with RVR started on Cardizem drip and admitted to a monitored bed for further management Hospital Course: 1. Paroxysmal afib with RVR - He presented with symptomatic afib. He had a negative echo and a negative stress test. His afib would not resolve with just cardizem, his rate was controlled but he would occasionally have minor palpitations, so he was cardioverted into sinus rhythm. He was discharged on cardizem and xarelto. 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 Also decreasing the amount of coffee he drinks would be helpful. 2 His other diagnoses were evaluated and his home medications were continued where appropriate Discharge Activity: Return to Normal Activity May resume sexual activity in: No Restrictions Call your doctor if you observe: Shortness of breath, Dizziness, Fainting spells, Chest pain, Increased palpitations (irregular heartbeat) Home Medications: Medications to take at Discharge Fluticasone 0.05% [Flonase Nasal [place]] 1 spray NASAL DAILY 04/02/18 Propranolol HCl 20 mg PO PRN PRN 04/02/18 Diltiazem CD [Cardizem CD] 120 mg PO DAILY #30 cap 04/03/18 Rivaroxaban [Xarelto] 20 mg PO DAILY #30 tab 04/03/18 Following Prescrptions Were Given to Patient: Diltiazem CD [Cardizem CD] 120 mg PO DAILY #30 cap Rivaroxaban [Xarelto] 20 mg PO DAILY #30 tab Primary Care Physician: Karlo Flores PA [Primary Care Provider] - Please follow up with your Primary Care Physician in: in 3-5 days Please Follow Up With: Florencio Godinez NP-C When: 2-4wks Disposition: Home Minutes spent on discharge:: 35 Patient Condition:: Good Medical Necessity - Tobacco Use Smoking Status: Former smoker Tobacco Use: Vapor Meaningful Use Info Meaningful Use Diagnoses (Choose all that apply): None applicable Code Visit Inpatient E&M: 94983 Disch Hosp
== END 2018-04-03 19:45 | disposition home or self-care (01) | DRG 310 ==
LOC: ED 14:36 → PCU 04-03 06:29
PROVIDERS: Family Medicine; Internal Medicine Cardiovascular Disease; Admitting Provider Internal Medicine; Emergency Provider Emergency Medicine; Family Provider Physician Assistant; PCP Physician Assistant; Visit Provider Internal Medicine
DX: I48.0 Paroxysmal atrial fibrillation (principal); Z87.891 Personal history of nicotine dependence; I48.92 Unspecified atrial flutter; J45.998 Other asthma; Z82.49 Family history of ischemic heart disease and other diseases of the circulatory system
CPT/HCPCS: 36415; 71045; 78452; 80048; 80061; 80076; 80307; 83735; 84443; 84484; 85025; 85610; 85730; 92960; 93005; 93017; 93306; 93312; 93320; 93325; 99283; 99406; A9500; J7030; J7040; Q9957; A4216; C8929; J2785

== ENCOUNTER → 2019-06-21 | Outpatient (CLI) | payer OTHER, SELFPAY ==
--- NOTE | 2019-06-21 09:07 | US_ITS ---
STUDY: ABDOMINAL ULTRASOUND - RIGHT UPPER QUADRANT REASON FOR VISIT: Male, 34 years old right upper quadrant pain TECHNIQUE: Ultrasound evaluation of the right upper quadrant was performed with real-time and static rajput-scale imaging. TECHNICAL QUALITY: Adequate. COMPARISON: None. FINDINGS: Liver: The liver measures 13.4 cm. There is fatty echogenicity of the liver. The bile ducts are within normal limits. There is hepatic color flow. The direction of portal flow is hepatopetal. A hypoechoic 1.4 x 1 cm area adjacent to the gallbladder may be due to focal fatty sparing. Gallbladder: Normal distended gallbladder. The gallbladder wall measures 3.5 mm. There is a negative sonographic Fuller's sign. There is no pericholecystic fluid. There are no gallstones. Common Bile Duct (C.B.D.): The common bile duct measures 3.5 mm. Pancreas: Limited visualization of the pancreas. Right Kidney: Normal size of the right kidney. The right kidney measures 11.6 x 5.2 x 6.3 cm. Normal renal cortex. The right cortex measures 2.4 cm. There is no demonstrated renal mass or cyst. There is no right hydronephrosis. US/Abdomen Limited IMPRESSION: Fatty liver with possible focal fatty sparing adjacent to the gallbladder. Electronically Signed: Coy Miller DO at 16:04 EST Tel [phone], Service support ,
== END | disposition home or self-care (01) ==
LOC: US 09:05
PROVIDERS: Family Provider Family Medicine; PCP Family Medicine; Referring Provider Family Medicine; Visit Provider Family Medicine
DX: R10.11 Right upper quadrant pain (principal)
CPT/HCPCS: 76705

== ENCOUNTER 2020-02-08 14:03 | Emergency (ER) | payer OTHER, SELFPAY ==
[2019-09-11 16:16] VITALS: BMI 34.6
[2020-02-08 14:04] VITALS: BP 156/96; PULSE 79; RESP 18; TEMP 36.6; O2SAT 98; BMI 33.3
--- NOTE | 2020-02-08 14:31 | ED.VIS.GEN ---
History of Present Illness Chief Complaint: Lower Extremity Injury Detail of Chief Complaint: Redness and itching to left leg Informant: Patient Onset: Days - 3 days Context: Gradual Onset Narrative: Patient present secondary to redness and swelling to the left leg. He has a history of paroxysmal A. fib and has been on Xarelto. He took his last dose on February 05. That same day he drove to [place]. He noted some itching with redness and hives on his left leg. This continues. Family was concerned about a possible blood clot. Patient does state that he was playing softball and went down into some weeds to retrieve a ball. He is not sure if he may have come into contact with poison sun or something similar. - Past Medical History (1) Paroxysmal A-fib Status: Chronic Comment: DCCV in March 2018; Past Medical History - Allergies and Home Meds Allergies/Adverse Reactions: Allergies sulfamethoxazole [From ] Allergy (Verified 02/08/20 14:07) Rash trimethoprim [From ] Allergy (Verified 02/08/20 14:07) Rash Primary Care Physician: Cecil Ferrara DO [Primary Care Provider] - Prior records reviewed: Yes Lives: With Family Smoking Status: Former smoker Review of Systems General: Denies: Chills, Fever Eyes: Denies: Visual changes - bilaterally ENT: Denies: Bilateral ear pain Cardiovascular: Denies: Chest pain Respiratory: Denies: Dyspnea, Cough Gastrointestinal: Denies: Abdominal pain, Nausea, Vomiting Musculoskeletal: Reports: Swelling, Extremity Pain Skin: Reports: Rash Neurological: Denies: Headache Hematologic: Denies: Easy bruising, Easy bleeding Allergy: Reports: Uticaria. Denies: Swelling of the mouth, Swelling of the tongue Physical Exam Vital Signs/Narrative: Vital Signs Temp Pulse Resp BP Pulse Ox 02/08/20 14:04 97.9 F 79 18 156/96 H 98 Inital Vital Signs reviewed: Yes General: Well nourished, Well developed Head: Normocephalic ENT: Moist mucous membranes Neck: Supple Cardiovascular: Regular rate, Regular rhythm Respiratory: No distress, CTA bilaterally Abdomen: Soft, Nontender Extremities: - - Erythema and warmth to the left thigh. Is consistent with an allergic reaction. Calf is soft and nontender. Strong distal pulses. Neurological: Alert, Oriented x3 Psychological: Normal affect Diagnostic/Tx/Re-eval - Medical Decision Making Patient's erythema of the leg appears consistent with an allergic reaction. I do not see sign of cellulitis. Patient took his Xarelto the same day that he had a long car ride. I do not suspect that he would form a clot. I do have a 30-day voucher for Eliquis that we will start him on. This was discussed with Dr. Fields. Patient is to call his insurance company tomorrow to determine what tier payment is required for Xarelto and Eliquis and then contact the cardiology office. ED Disposition - Plan for ED Patient: Disposition: Home or Assisted Living Diagnosis: Allergic reaction Instructions: ED General Allergic Reactions Prescriptions: Prednisone [Deltasone] 40 mg PO DAILY #10 tab Transmission Status: Pending to [id number] Apixaban [Eliquis] 5 mg PO BID #60 tab Transmission Status: Pending to [id number] Referrals: Cecil Ferrara DO [Primary Care Provider] - Dwaine Bianchi MD [STAFF PHYSICIAN] -
[2020-02-08] MEDS: predniSONE 20 MG Tablet 60 MG PO (15:11)
[2020-02-08] MEDS: APIXABAN 5 MG TABLET PO (15:11)
== END 2020-02-08 15:16 | disposition home or self-care (01) ==
LOC: ED 14:55
PROVIDERS: Emergency Provider Emergency Medicine; PCP Family Medicine
DX: T78.40XA Allergy, unspecified, initial encounter (principal); I48.0 Paroxysmal atrial fibrillation; Z79.02 Long term (current) use of antithrombotics/antiplatelets; Z87.891 Personal history of nicotine dependence
CPT/HCPCS: 99283

== ENCOUNTER → 2020-07-27 11:36 | Outpatient (CLI) | payer OTHER, SELFPAY ==
[2020-03-11 15:45] VITALS: BMI 33.9
== END ==
PROVIDERS: PCP Family Medicine; Visit Provider Family Medicine
DX: U07.1 COVID-19 (principal)
CPT/HCPCS: 87426

== ENCOUNTER → 2020-08-04 | Outpatient (CLI) | payer OTHER, SELFPAY ==
[2020-03-11 15:45] VITALS: BMI 33.9
== END | disposition home or self-care (01) ==
LOC: LABSPEC 12:44
PROVIDERS: PCP Family Medicine; Visit Provider Family Medicine
DX: Z20.828 Contact with and (suspected) exposure to other viral communicable diseases (principal)
CPT/HCPCS: 87426

== ENCOUNTER 2022-12-18 19:29 | Emergency (ER) | payer OTHER, SELFPAY ==
[2022-12-18 19:29] VITALS: BP 144/91; PULSE 65; RESP 18; TEMP 36.7; O2SAT 98; BMI 34.9
--- NOTE | 2022-12-18 19:36 | ED.VIS.CHEST ---
HPI History of Present Illness Chief Complaint: Palpitations PFS PFS Medical History Atrial fibrillation and flutter Encounter for screening for COVID-19 Palpitations Paroxysmal A-fib Paroxysmal atrial fibrillation with RVR Home Medications apixaban 5 mg tablet 5 mg PO BID #60 tabs 06/05/22 [Rx Last Taken Unknown] metoprolol succinate 50 mg tablet,extended release 24 hr 50 mg PO DAILY #90 tabs 08/14/22 [Rx Last Taken Unknown] Allergy/AdvReac Type Severity Reaction Status Date / Time sulfamethoxazole Allergy Rash Verified 12/18/22 19:31 [From ] trimethoprim [From ] Allergy Rash Verified 12/18/22 19:31 Family History Father Hypertension CAD (coronary artery disease) cabg Hyperlipidemia Brother Hypertension Surgical History History of hand surgery History of tonsillectomy Status post myringotomy with tube placement of both ears Social History Smoking Status: Never smoker EXAM Physical Exam Const Vital Signs: 12/18/22 19:29 12/18/22 19:41 12/18/22 20:31 Temperature 98.1 F Temperature Source Temporal Pulse Rate 65 56 L Respiratory Rate 18 Blood Pressure 144/91 H 127/82 H Blood Pressure Mean 108 97 Pulse Ox 98 Oxygen Delivery Method Room Air Room Air 12/18/22 20:31 Temperature Temperature Source Pulse Rate 57 L Respiratory Rate 18 Blood Pressure 127/82 H Blood Pressure Mean Pulse Ox 100 Oxygen Delivery Method MDM MDM MDM Narrative Medical decision making narrative: HISTORY OF PRESENT ILLNESS: 37-year-old male here with palpitations. The patient states he is going in and out of atrial fibrillation all day. Patient further states he has been having the symptoms without any inciting event. States he been compliant with his home medicine including 50 mg of metoprolol extended release and Eliquis. Last dose was this morning. Patient denies any vomiting, other volume loss, bleeding diathesis. My PE risk REVIEW OF SYSTEMS: Pertinent positives: Palpitations Pertinent negatives: Syncope, chest pain, shortness of PHYSICAL EXAM: Nursing triage notes reviewed, Vital signs reviewed Constitutional: please see mdm HENT: MMM Eyes: Pupils equal round and reactive to light, Extraocular muscles intact Neck: No stridor, no JVD, full neck ROM Lungs: Clear to auscultation, No wheezing or rales. No increased work of breathing, no conversational dyspnea, no accessory muscle use, no nasal flaring. No respiratory distress noted Heart: Regular rate and rhythm, No murmurs, No rubs and No gallops, 2+ distal pulses (radial, femoral, posterior tibial) in all extremities Abdomen: Soft, there is no tenderness, rigidity, rebound or guarding, no obvious peritoneal signs, no palpable pulsatile abdominal masses, no auscultated abdominal bruit : No CVAT Extremities: No edema Neuro: No focal neurological deficits, cranial nerves II through XII intact, 5/5 strength in all extremities. Intact sensation to light touch in all extremities, 2+ reflexes bilateral patella tendons. Normal gait. No ataxia. Skin: No rash or lesions noted MEDICAL DECISION MAKING: Chief Complaint: Palpitation External records reviewed: Last cardiology visit in January 2022 for palpitations Last echocardiogram in 2018 shows ejection fraction 55% Last stress test 2018 showed Conclusion: Normal pharmacologic myocardial perfusion stress test. Preserved ejection fraction. Atrial fibrillation noted. [facility] Narrative: Patient was initially hemodynamically stable, afebrile, nontoxic-appearing. Exam without focal cardiopulmonary normalities. Patient's initial EKG shows sinus rhythm. No signs of A-fib or ACS. I obtained labs to rule out signs of anemia, electrolyte abnormalities, dehydration, myocardial ischemia. I trialed an additional dose of metoprolol to control the patient's symptoms of palpitations and automaticity. Gave the patient 1 L normal saline. I considered the following differential diagnosis: Atrial fibrillation, anemia, electrolyte imbalance, myocardial, PE, dehydration I considered pulmonary embolism as a potential etiology for exacerbation of the patient's palpitations automaticity however the patient low risk Wells score had a low clinical gestalt and therefore did not pursue a CT of the chest. Labs and images were remarkable for no evidence of anemia, leukocytosis to suggest severe systemic inflammation. No evidence of significant electrolyte abnormalities, no evidence of myocardial ischemia, no evidence of hypomagnesemia. Patient's rate remained stable on telemetry. EKG showed no evidence of atrial fibrillation. He remained hemodynamically stable. He is appropriate for discharge home with outpatient cardiology follow-up. There is no clear life-limiting threatening etiology that could be ascertained in the emergency department. Patient updated. Patient agreed with plan. Factors affecting care: Atrial fibrillation, atrial flutter Social determinants of health: Former drinker, no current drug use History obtained from others: The patient's spouse Shared decision making: I will have a discussion with the patient and or visitors regarding risk/benefits of further testing or admission. They will be made aware of of the risk/benefits inherent in this decision they will be given the opportunity to voice understanding. Consults: None Lab Data Attestation: I reviewed the patient's lab results. Lab results narrative: EKG with sinus bradycardia, normal axis, normal intervals, no STEMI, no atrial fibrillation CBC without leukocytosis, severe anemia, no thrombocytopenia. There is elevated hemoglobin suggest hemoconcentration may be indicative of dehydration BMP without evidence of significant electrolyte abnormalities, no anion gap, no acute kidney injury. Troponin is negative, no evidence of myocardial ischemia Magnesium within normal limits Labs: Laboratory Results - last 24 hr 12/18/22 12/18/22 19:35 19:35 WBC 8.9 RBC 5.66 Hgb 16.6 H Hct 49.2 MCV 86.9 MCH 29.3 MCHC 33.7 RDW Std Deviation 40.0 RDW Coeff of Fiorella 12.7 Plt Count 273 MPV 9.6 Immature Gran % (Auto) 0.200 Neut % (Auto) 52.6 Lymph % (Auto) 31.5 Marion % (Auto) 8.1 Eos % (Auto) 6.7 H Baso % (Auto) 0.9 Absolute Neuts (auto) 4.7 Absolute Lymphs (auto) 2.80 Nucleated RBC % 0 Sodium 140 Potassium 4.0 Chloride 109 H Carbon Dioxide 22.0 Anion Gap 9 BUN 13 Creatinine 0.96 Estim Creat Clear Calc 117.91 Est GFR (MDRD) Af Amer 112 Est GFR (MDRD) Non-Af 93 BUN/Creatinine Ratio 13.5 Glucose 94 Calcium 9.2 Magnesium 2.1 Troponin I High Sens 5 Radiography Chest X-Ray - ED: Read by ED Physician Diagnostic Testing: Clinical Impression(s) from Imaging Studies Chest X-Ray 12/18/22 19:45 IMPRESSION: Normal x-ray examination of the chest. Electronically Signed: Niles Pandey MD at 20:07 EDT , I have personally reviewed the patient's chest x-ray. Chest x-ray is unremarkable for pulmonary edema, pneumothorax, pneumonia or focal cardiopulmonary abnormality. Discharge Plan Triage Chief Complaint: Palpitations ED Provider: Guilherme Marion Dx/Rx/DC Orders Instructions: ED AFIB, ED Palpitations Prescriptions: No Action apixaban 5 mg tablet 5 mg PO BID Qty: 60 12RF metoprolol succinate 50 mg tablet extended release 24 hr 50 mg PO DAILY Qty: 90 3RF Stand Alone Forms: ED Work / School Excuse Primary Care Provider: Cecil Ferrara Referrals: Dwaine Bianchi MD [Med Staff - Active Staff] - Activity Restrictions/Additional Instructions: Thank you for trusting us with your care today! Please take metoprolol and Eliquis as prescribed. Please return to the emergency department if your symptoms change or worsen. Please follow with your interpretive program coordinator for further outpatient evaluation and management. It may be worth asking your Warehouse Distribution Associate about Electrophysiology studies going forward. Disposition Disposition: Home, Self Care Discharge Date/Time: 12/18/22 20:31
--- NOTE | 2022-12-18 19:40 | EKG12_ITS ---
Test Reason : DYSRHYTHMIA Blood Pressure : / mmHG Vent. Rate : 057 BPM Atrial Rate : 057 BPM P-R Int : 138 ms QRS Dur : 076 ms QT Int : 406 ms P-R-T Axes : 051 022 032 degrees QTc Int : 395 ms Sinus bradycardia with marked sinus arrhythmia Otherwise normal ECG Confirmed by RASTA LOZADA, LORA ([id number]), state editor JEREMIAH MILTON ([id number]) on 12/19/2022 9:51:09 AM Referred By: KELLE Confirmed By:LORA MAGDALENO MD
--- NOTE | 2022-12-18 19:45 | RAD_ITS ---
STUDY: X-RAY CHEST REASON FOR EXAM: Male, 37 years old. chest pain TECHNIQUE: Single AP portable view of the chest. COMPARISON: 04/02/2018. FINDINGS: The lungs are clear and expanded. There is no demonstrated pleural abnormality. Normal size heart. Normal mediastinum and jairo. Normal visualized pulmonary arteries. Normal visualized aortic arch and descending thoracic aorta. Normal visualized thoracic spine. Normal visualized ribs, clavicles, and shoulders. There is no demonstrated abnormality of the visualized soft tissue structures of the upper abdomen. RAD/Chest 1 View (Portable) IMPRESSION: Normal x-ray examination of the chest. Electronically Signed: Niles Pandey MD at 20:07 EDT ,
[2022-12-18 19:47] LABS: Absolute Neutrophil Count 4.7 X10^3/uL (2.0-7.7); Basophil# 0.08 X10^3/uL; Basophil% 0.9 % (0-1); Eosinophils% 6.7 % (0-5); Hematocrit 49.2 % (40-54); Hemoglobin 16.6 g/dL (13.0-16.5); Lymphocyte % 31.5 % (19-41); Mean Corp Hgb Conc 33.7 g/dL (32-36); Mean Corpuscular Hgb 29.3 pg (27.0-32.0); Mean Corpuscular Volume 86.9 fL (80-94); Mean Platelet Vol. 9.6 fl (6.2-12.0); Monocyte# 0.72 X10^3/uL; Monocyte% 8.1 % (0-10); NRBC Flagged by Analyzer 0 % (0-5); Neutrophil # 4.68 X10^3/uL (2.7-7.7); Neutrophil % 52.6 % (47-70); Platelet Count 273 K/mm3 (150-450); RBC Distribution Width CV 12.7 % (11.6-14.6); Red Blood Count 5.66 M/mm3 (4.6-6.2); White Blood Count 8.9 K/mm3 (4.4-11.0)
[2022-12-18] MEDS: 0.9% Normal Saline 1,000 ML 999 ML IV (20:01)
[2022-12-18 20:04] LABS: Anion Gap 9 (5-15); BUN 13 mg/dL (7-18); BUN/Creat Ratio 13.5 RATIO (10-20); Calcium,Total 9.2 mg/dL (8.5-10.1); Chloride 109 mmol/L (98-107); Creatinine, Serum 0.96 mg/dL (0.70-1.30); EST Glomerular Filtration Rate 93 mL/min (>60); Est Glom Filt Rate - Afr Amer 112 mL/min (>60); Estimated Creatinine Clearance 117.91 ml/min; Glucose 94 mg/dL (74-106); Magnesium 2.1 mg/dL (1.6-2.6); Sodium Level 140 mmol/L (136-145); Troponin-I HS 5 pg/mL (3.0-78.0)
--- NOTE | 2022-12-18 20:21 | ED.RN ---
Pt HR <60, Dr. Marion aware. Order to hold metoprolol.
[2022-12-18 20:31] VITALS: BP 127/82; PULSE 56; PULSE 57; RESP 18; O2SAT 100
== END 2022-12-18 20:31 | disposition home or self-care (01) ==
PROVIDERS: Emergency Provider Emergency Medicine; PCP Family Medicine; Visit Provider Emergency Medicine
DX: I48.91 Unspecified atrial fibrillation (principal); I48.92 Unspecified atrial flutter
CPT/HCPCS: 71045; 80048; 83735; 84484; 85025; 93005; 96360; 99284; J7030; A4216

== ENCOUNTER → 2023-02-08 | Outpatient (CLI) | payer SELFPAY ==
--- NOTE | 2023-02-08 14:45 | ECHOD_ITS ---
Reason For Study: Paroxysmal AFib Procedure This was a 2D Doppler, Color Flow transthoracic echocardiogram. Exam performed in department. Left Ventricle Normal LV size. Left ventricular systolic function is normal. The estimated ejection fraction is 55 %. Normal diastology for age. No regional wall motion abnormalities noted. Right Ventricle Normal RV size. Normal systolic function. Atria Normal left atrium. Normal right atrium. Mitral Valve Normal mitral valve. Tricuspid Valve Normal tricuspid valve. Aortic Valve Normal aortic valve. Pulmonic Valve The pulmonic valve is not well visualized. Great Vessels Normal aortic root. The pulmonary artery is normal size. Normal inferior vena cava. Pericardium/Pleural No pericardial effusion. MMode/2D Measurements & Calculations LVIDd: 5.2 cm IVSd: 0.96 cm LA dimension: 3.9 cm LVIDs: 3.2 cm LVPWd: 1.0 cm RVDd: 4.0 cm FS: 38.4 % LAV(MOD-bp): 57.0 ml LVAd ap4: 35.6 cm2 SV(MOD-sp4): 70.5 ml LAV(MOD-bp) Indexed: 23.6 ml/m2 LVLd ap4: 8.6 cm LAV(MOD-sp2): 56.7 ml EDV(MOD-sp4): 118.2 ml LAV(MOD-sp4): 57.8 ml EDV(sp4-el): 124.7 ml LVAs ap4: 19.5 cm2 LVLs ap4: 6.7 cm ESV(MOD-sp4): 47.8 ml ESV(sp4-el): 47.9 ml EF(MOD-sp4): 59.6 % EF(sp4-el): 61.5 % SV(sp4-el): 76.7 ml LA A4 area: 19.9 cm2 RA A4 area: 15.0 cm2 Time Measurements MV dec time: 0.23 sec Doppler Measurements & Calculations MV E max leonardo: 101.0 cm/sec Lat Peak E' Leonardo: 17.0 cm/sec Med Peak E' Leonardo: 10.3 cm/sec MV A max leonardo: 84.9 cm/sec E/E' lat: 5.9 E/E' med: 9.8 MV E/A: 1.2 MV V2 max: 94.9 cm/sec MV P1/2t max leonardo: 94.9 cm/sec Ao V2 max: 125.6 cm/sec MV max P.6 mmHg MV P1/2t: 69.7 msec Ao max P.3 mmHg MV V2 mean: 51.9 cm/sec Ao V2 mean: 83.3 cm/sec MV mean P.3 mmHg MV dec slope: 398.4 cm/sec2 Ao mean P.3 mmHg MV V2 VTI: 29.3 cm MVA(P1/2t): 3.2 cm2 Ao V2 VTI: 28.3 cm AV (velocity ratio): 0.88 LV V1 max: 112.7 cm/sec PA V2 max: 78.0 cm/sec LV V1 max P.1 mmHg PA V2 mean: 52.0 cm/sec LV V1 mean P.0 mmHg LV V1 mean: 82.4 cm/sec LV V1 VTI: 24.8 cm ECHO/Echo Complete Interpretation Summary Normal LV size. Left ventricular systolic function is normal. The estimated ejection fraction is 55 %. Structurally normal valves. Ordering Physician: Melody Mckinley Referring Physician: Cecil Ferrara Performed By: Jarad Lauren RCS
== END | disposition home or self-care (01) ==
LOC: CVS 14:42
PROVIDERS: PCP Family Medicine; Referring Provider Nurse Practitioner Gerontology; Visit Provider Nurse Practitioner Gerontology
DX: I48.0 Paroxysmal atrial fibrillation (principal)
CPT/HCPCS: 93306

== ENCOUNTER → 2023-02-16 | Outpatient (CLI) | payer OTHER, SELFPAY | END | disposition home or self-care (01) | LOC: SL 20:09 | PROVIDERS: PCP Family Medicine; Referring Provider Nurse Practitioner Gerontology; Visit Provider Nurse Practitioner Gerontology | DX: G47.10 Hypersomnia, unspecified (principal) | CPT/HCPCS: 95810 ==